=== PATIENT | male | born 1975 | race Caucasian/White ===

== ENCOUNTER 2019-06-16 14:53 | Inpatient (IN) | payer OTHER ==
[2019-06-16 19:24] VITALS: BMI 45.0
--- NOTE | 2019-06-16 21:30 | HP ---
COWS - Scale Resting Pulse: 1= AK 81-100 Sweatin=Flushed/Facial Moisture Restless Observation: 0= Sits Still Pupil Size: 1= Pupils >than Normal Bone or Joint Aches: 4=Acute Joint/Muscle Pain Runny Nose/ Eye Tearin= Nasal Congestion GI Upset > 30mins: 2= Nausea/Diarrhea (diarrhea x 3) Tremor Observation: 2= Slight Tremor Visible Yawning Observation: 1= 1-2x During Session Anxiety or Irritability: 4=Extreme Anxiety Goose Flesh Skin: 0=Smooth Skin COWS Score: 18 CIWA Score Nausea/Vomitin Muscle Tremors: 3 Anxiety: 3 Agitation: 3 Paroxysmal Sweats: 2 Orientation: 2-Disoriented Date<2 days Tacttile Disturbances: 0-None Auditory Disturbances: 0-None Visual Disturbances: 0-None Headache: 4-Moderately Severe CIWA-Ar Total Score: 19 - Admission Criteria OASAS Guidelines: Admission for Medically Managed Detox: Requires at least one of the followin. CIWA greater than 12 2. Seizures within the past 24 hours 3. Delirium tremens within the past 24 hours 4. Hallucinations within the past 24 hours 5. Acute intervention needed for co occurring medical disorder 6. Acute intervention needed for co occurring psychiatric disorder 7. Severe withdrawal that cannot be handled at a lower level of care (continued vomiting, continued diarrhea, abnormal vital signs) requiring intravenous medication and/or fluids 8. Admission ROS [facility] Chief Complaint: Heroin and alcohol withdrawal symptoms Allergies/Adverse Reactions: Allergies Allergy/AdvReac Type Severity Reaction Status Date / Time No Known Allergies Allergy Verified 06/16/19 19:15 History of Present Illness: 43 years old male with 14 years of heroin dependence, 7 years of Xanax dependence and 26 years of alcohol dependence is seeking admission to detox. - Ebola screening Have you traveled outside of the country in the last 21 days: No (N) Have you had contact with anyone from an Ebola affected area: No Do you have a fever: No Patient History - Substances abused Alprazolam (Xanax) Substance route: Oral Frequency: Daily Amount used: 3 pills of 2 mg Age of first use: 39 Date of last use: 06/16/19 Crack Substance route: Smoking Frequency: Daily Amount used: 40 dollars worth Age of first use: 39 Date of last use: 06/16/19 Alcohol Substance route: Oral Frequency: Daily Amount used: 30 dollars worth of beer Age of first use: 13 Date of last use: 06/16/19 Heroin Substance route: Inhalation Frequency: Daily Amount used: 10 bags Age of first use: 31 Date of last use: 06/16/19 Admission Physical Exam BHS - Vital Signs Vital Signs: Vital Signs - 24 hr 06/16/19 19:14 Temperature 97 F L Pulse Rate 90 Respiratory 18 Rate Blood Pressure 145/84 Breathalyzer - Breathalyzer Breathalyzer: 0 Urine Drug Screen - Test Device Lot number: [id number] Expiration date: 03/11/21 - Control Is test valid?: Yes - Results Drug screen NEGATIVE: No Urine drug screen results: ALEX-Cocaine, MET-Methamphetamine, FEN-Fentanyl, MOP- Opiates, OXY-Oxycodone, MTD-Methadone, BZO-Benzodiazepines
--- NOTE | 2019-06-16 21:46 | HP ---
CIWA Score Nausea/Vomitin-No Nausea/No Vomiting Muscle Tremors: 2 Anxiety: 3 Agitation: 3 Paroxysmal Sweats: 1-Minimal Palms Moist Orientation: 0-Oriented Tacttile Disturbances: 1-Very Mild Itch/Numbness Auditory Disturbances: 0-None Visual Disturbances: 1-Very Mild Sensitivity Headache: 3-Moderate CIWA-Ar Total Score: 14 - Admission Criteria OASAS Guidelines: Admission for Medically Managed Detox: Requires at least one of the followin. CIWA greater than 12 2. Seizures within the past 24 hours 3. Delirium tremens within the past 24 hours 4. Hallucinations within the past 24 hours 5. Acute intervention needed for co occurring medical disorder 6. Acute intervention needed for co occurring psychiatric disorder 7. Severe withdrawal that cannot be handled at a lower level of care (continued vomiting, continued diarrhea, abnormal vital signs) requiring intravenous medication and/or fluids 8. Patient presents the following: CIWA greater than 12 Admission Criteria Met: Admission criteria met Admission ROS BHS - HPI Chief Complaint: alcohol and xanax withdrawal sx Allergies/Adverse Reactions: Allergies Allergy/AdvReac Type Severity Reaction Status Date / Time No Known Allergies Allergy Verified 06/16/19 19:15 History of Present Illness: Patient is a 43 yo, male, homeless with hx of xanax and alcohol dependence is here seeking inpatient detox. Patient linked [facility] on methadone 130 mg last medicated today, dose pending verification. PMHX; brain aneurysm (2000), PVD, HTN, Asthma, obesity, sleep apnea. Psych: anxiety, depression. Denies hx of seizures,blackouts or overdose. Denies SI/HI Exam Limitations: No Limitations - Ebola screening Have you traveled outside of the country in the last 21 days: No (N) Have you had contact with anyone from an Ebola affected area: No Do you have a fever: No - Review of Systems Constitutional: Chills, Changes in sleep (no sleep x 2 days), Other (weight gain ) EENT: reports: No Symptoms Reported Respiratory: reports: See HPI Cardiac: reports: No Symptoms Reported GI: reports: Poor Fluid Intake, Indigestion : reports: No Symptoms Reported Musculoskeletal: reports: Back Pain, Joint Pain Integumentary: reports: Other (hyper pigementation b/l extremities) Neuro: reports: Headache Endocrine: reports: Increased Thirst Hematology: reports: No Symptoms Reported Psychiatric: reports: Orientated x3, Agitated, Anxious Other Systems: Reviewed and Negative Patient History - Patient Medical History Hx Anemia: No Hx Asthma: Yes Hx Chronic Obstructive Pulmonary Disease (COPD): No Hx Cancer: No Hx Cardiac Disorders: No Hx Congestive Heart Failure: No Hx Hypertension: Yes (losartan ) Hx Hypercholesterolemia: Yes Hx Pacemaker: No HX Cerebrovascular Accident: No Hx Seizures: No Hx Dementia: No Hx Diabetes: No Hx Gastrointestinal Disorders: No Hx Liver Disease: Yes (Hep C) Hx Genitourinary Disorders: No Hx Sexually Transmitted Disorders: No Hx Renal Disease (ESRD): No Hx Thyroid Disease: No Hx Human Immunodeficiency Virus (HIV): No Hx Hepatitis C: Yes Hx Depression: Yes Hx Suicide Attempt: No Hx Bipolar Disorder: No Hx Schizophrenia: No Other Medical History: Sleep apnea, Brain aneurysm - Patient Surgical History Past Surgical History: Yes Other Surgical History: brain aneurysm Anesthesia Reaction: No - PPD History Previous Implant?: No (quantioferon ordered ) Documented Results: Negative w/o proof PPD to be Administered?: No - Smoking Cessation Smoking history: Current every day smoker Have you smoked in the past 12 months: Yes Aproximately how many cigarettes per day: 4 Hx Chewing Tobacco Use: No Initiated information on smoking cessation: Yes 'Breaking Loose' booklet given: 06/16/19 - Substance & Tx. History Hx Alcohol Use: Yes Hx Substance Use: Yes Substance Use Type: Alcohol, Tranquilizers Hx Substance Use Treatment: Yes (Detox 2015 [facility] ) - Substances abused Alprazolam (Xanax) Substance route: Oral Frequency: Daily Amount used: 3 pills of 2 mg Age of first use: 39 Date of last use: 06/16/19 Crack Substance route: Smoking Frequency: Daily Amount used: 40 dollars worth Age of first use: 39 Date of last use: 06/16/19 Alcohol Substance route: Oral Frequency: Daily Amount used: 10 beer x 12 oz Age of first use: 13 Date of last use: 06/16/19 Heroin Substance route: Inhalation Frequency: Daily Amount used: 10 bags Age of first use: 31 Date of last use: 06/16/19 Family Disease History - Family Disease History Family History: Denies Admission Physical Exam BHS - Vital Signs Vital Signs: Vital Signs - 24 hr 06/16/19 19:14 Temperature 97 F L Pulse Rate 90 Respiratory 18 Rate Blood Pressure 145/84 - Physical General Appearance: Yes: Disheveled, Obese, Irritable, Anxious HEENTM: Yes: EOMI, Hearing grossly Normal, Normal ENT Inspection, Normocephalic , Normal Voice, Pharynx Normal, Tm's normal Respiratory: Yes: Chest Non-Tender, Lungs Clear, Normal Breath Sounds, No Respiratory Distress, No Accessory Muscle Use, Wheezing Neck: Yes: Within Normal Limits Breast: Yes: Breast Exam Deferred Cardiology: Yes: Regular Rhythm, Regular Rate Abdominal: Yes: Normal Bowel Sounds, Non Tender, Soft, Protuberent Genitourinary: Yes: Within Normal Limits Back: Yes: Normal Inspection Musculoskeletal: Yes: full range of Motion, Gait Steady, Pelvis Stable, Back pain Extremities: Yes: Within Normal Limits, Normal Capillary Refill, Normal Inspection, Normal Range of Motion, Non-Tender Neurological: Yes: prover II-XII NML intact, Fully Oriented, Alert, Motor Strength 5/5, Depressed Affect Integumentary: Yes: Normal Color, Warm, Diaphoresis, Other (+b/l non-pitting edema, +b/l varicose veins, hyperpigmentation b/l lower etxremities) Lymphatic: Yes: Within Normal Limits - Diagnostic (1) Alcohol dependence with uncomplicated withdrawal Current Visit: Yes Status: Acute (2) Sedative, hypnotic or anxiolytic dependence with withdrawal, uncomplicated Current Visit: Yes Status: Acute (3) Essential (primary) hypertension Current Visit: Yes Status: Chronic (4) Asthma Current Visit: Yes Status: Chronic Qualifiers: Asthma severity: moderate Asthma persistence: unspecified Asthma complication type: uncomplicated Qualified Code(s): J45.909 - Unspecified asthma, uncomplicated (5) Obesity, Class III, BMI 40-49.9 (morbid obesity) Current Visit: Yes Status: Chronic (6) Opioid dependence on agonist therapy Current Visit: Yes Status: Acute Comment: MMTP on 130 mg dose pending verification Cleared for Admission S - Detox or Rehab [facility] Level of Care: Medically Managed Detox Regimen/Protocol: Librium Breathalyzer - Breathalyzer Breathalyzer: 0 Urine Drug Screen - Test Device Lot number: [id number] Expiration date: 03/11/21 - Control Is test valid?: Yes - Results Drug screen NEGATIVE: No Urine drug screen results: ALEX-Cocaine, MET-Methamphetamine, FEN-Fentanyl, MOP- Opiates, OXY-Oxycodone, MTD-Methadone, BZO-Benzodiazepines Inpatient Rehab Admission - Rehab Decision to Admit Inpatient rehab admission?: No
[2019-06-16] MEDS ORDERED: ALBUTEROL SO4 0.083% IH SOL 2.5 MG/3 ML VIAL.NEB. NEB PRN (21:50)
[2019-06-16] MEDS ORDERED: hydrOXYzine PAMOATE 25 MG CAPSULE (FP) PO PRN (21:51)
[2019-06-16] MEDS ORDERED: BISMUTH SUBSALICYLATE 524 MG/30 ML UD PO PRN (21:51)
[2019-06-16] MEDS ORDERED: ACETAMINOPHEN 325 MG TABLET (FP) PO PRN ×2 (21:51)
[2019-06-16] MEDS ORDERED: MAGNESIUM HYDROX 2400MG/30ML ORAL SUSPENSION 30 ML CUP PO PRN (21:51)
[2019-06-16] MEDS ORDERED: METHOCARBAMOL 500 MG TABLET PO PRN (21:51)
[2019-06-16] MEDS ORDERED: MAGNESIUM CITRATE 300 ML BOTTLE PO PRN (21:51)
[2019-06-16] MEDS ORDERED: MAG HYDROX/AL HYDROX/SIMETH 30 ML UNIT-DOSE CUP PO PRN (21:51)
[2019-06-16] MEDS ORDERED: NICOTINE POLACRILEX 2 MG GUM BUC PRN (21:51)
[2019-06-16] MEDS ORDERED: chlordiazePOXIDE HCL 10 MG CAPSULE PO PRN (21:51)
[2019-06-16] MEDS: GABAPENTIN 300 MG CAPSULE (FP) PO SCH (23:28)
[2019-06-16] MEDS: chlordiazePOXIDE HCL 25 MG CAPSULE PO SCH (23:28)
[2019-06-16] MEDS: THIAMINE HCL 100 MG TABLET (FP) PO SCH (23:28)
[2019-06-17] MEDS: hydrALAZINE HCL 25 MG TABLET (FP) PO SCH ×2 (00:09→22:11)
[2019-06-17] MEDS: GABAPENTIN 300 MG CAPSULE (FP) PO SCH ×3 (06:25→22:11)
[2019-06-17] MEDS: chlordiazePOXIDE HCL 25 MG CAPSULE PO SCH ×3 (06:25→21:11)
[2019-06-17] MEDS ORDERED: METHADONE HCL 10 MG TABLET PO ONE (09:01)
[2019-06-17] MEDS ORDERED: METHADONE 120 MG, METHADONE 10 MG PO ONE (09:20)
[2019-06-17] MEDS ORDERED: METHADONE HCL 40 MG DISPERSABLE TABLET ONE (09:24)
[2019-06-17] MEDS ORDERED: METHADONE HCL 10 MG TABLET ONE (09:24)
[2019-06-17] MEDS: LOSARTAN POTASSIUM 50 MG TABLET (FP) PO SCH (09:51)
[2019-06-17] MEDS: FUROSEMIDE 40 MG TABLET (FP) PO SCH (09:51)
[2019-06-17] MEDS: NICOTINE 14 MG/24 HOURS TOPICAL PATCH TD SCH (09:51)
[2019-06-17] MEDS: PRENATAL VITAMINS W/ FOLIC ACID TABLET (FP) PO SCH (09:51)
--- NOTE | 2019-06-17 11:39 | PN ---
S CIWA - CIWA Score Nausea/Vomitin Muscle Tremors: 2 Anxiety: 2 Agitation: 2 Paroxysmal Sweats: No Perspiration Orientation: 0-Oriented Tacttile Disturbances: 1-Very Mild Itch/Numbness Auditory Disturbances: 0-None Visual Disturbances: 0-None Headache: 2-Mild CIWA-Ar Total Score: 11 S Progress Note (SOAP) Subjective: alet,irritable,anxious,interrupted sleep,tremor Objective: 06/17/19 11:37 Vital Signs Temperature 97.3 F L 06/17/19 09:27 Pulse Rate 82 06/17/19 09:27 Respiratory Rate 18 06/17/19 09:27 Blood Pressure 121/77 06/17/19 09:27 O2 Sat by Pulse Oximetry (%) 06/17/19 11:38 labs pending Assessment: 06/17/19 11:38 withdrawal symptom Plan: continue detox librium regimen
[2019-06-17 12:04] LABS: HEMATOCRIT 42.2 % (35.4-49); HEMOGLOBIN 13.3 GM/dL (11.7-16.9); MCH 26.7 pg (25.7-33.7); MCHC 31.6 g/dl (32.0-35.9); MEAN CELL VOLUME 84.4 fl (80-96); MEAN PLT VOLUME 9.1 fl (7.5-11.1); PLATELET COUNT 276 K/MM3 (134-434); RDW 16.9 % (11.9-15.9); WHITE BLOOD COUNT 11.7 K/mm3 (4.0-10.0)
[2019-06-17 12:18] LABS: ALBUMIN 3.4 g/dl (3.4-5.0); BILIRUBIN,TOTAL 0.3 mg/dL (0.2-1); BLOOD UREA NITROGEN 14.5 mg/dL (7-18); CALCIUM 8.7 mg/dL (8.5-10.1); CREATININE 0.8 mg/dL (0.55-1.3); POTASSIUM 3.8 mmol/L (3.5-5.1); TOT PROT 7.3 g/dl (6.4-8.2)
--- NOTE | 2019-06-17 12:18 | EKG ---
Test Reason : Blood Pressure : / mmHG Vent. Rate : 073 BPM Atrial Rate : 073 BPM P-R Int : 156 ms QRS Dur : 110 ms QT Int : 430 ms P-R-T Axes : 045 -26 018 degrees QTc Int : 473 ms NORMAL SINUS RHYTHM MINIMAL VOLTAGE CRITERIA FOR LVH, MAY BE NORMAL VARIANT CANNOT RULE OUT INFERIOR INFARCT , AGE UNDETERMINED ABNORMAL ECG NO PREVIOUS ECGS AVAILABLE Confirmed by KHARI HUGHES MD ([id number]) on 06/17/2019 12:17:29 PM Referred By: CAROL TOBAR Confirmed By:KHARI HUGHES MD
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
[2019-06-17] MEDS ORDERED: SUVOREXANT 10 MG TABLET PO PRN (22:00)
[2019-06-17] MEDS: THIAMINE HCL 100 MG TABLET (FP) PO SCH (22:10)
[2019-06-17] MEDS: MELATONIN 5 MG TABLETS PO PRN (22:11)
[2019-06-18] MEDS: ALBUTEROL SO4 8 GM HFA INHALER IH PRN (03:59)
[2019-06-18] MEDS ORDERED: METHADONE HCL 10 MG TABLET ONE (05:37)
[2019-06-18] MEDS ORDERED: METHADONE HCL 40 MG DISPERSABLE TABLET ONE (05:37)
[2019-06-18] MEDS: chlordiazePOXIDE 5 MG CAPSULE PO SCH ×3 (05:55→21:55)
[2019-06-18] MEDS: METHADONE 120 MG, METHADONE 10 MG PO SCH (05:56)
[2019-06-18] MEDS ORDERED: METHADONE HCL 40 MG DISPERSABLE TABLET PO SCH (06:00)
[2019-06-18] MEDS: hydrALAZINE HCL 25 MG TABLET (FP) PO SCH ×4 (08:44→22:23)
[2019-06-18] MEDS: GABAPENTIN 300 MG CAPSULE (FP) PO SCH ×3 (08:45→22:24)
[2019-06-18] MEDS: FUROSEMIDE 40 MG TABLET (FP) PO SCH (10:54)
[2019-06-18] MEDS: PRENATAL VITAMINS W/ FOLIC ACID TABLET (FP) PO SCH (10:54)
[2019-06-18] MEDS: NICOTINE 14 MG/24 HOURS TOPICAL PATCH TD SCH (10:54)
[2019-06-18] MEDS: LOSARTAN POTASSIUM 50 MG TABLET (FP) PO SCH (10:54)
--- NOTE | 2019-06-18 11:27 | PN ---
S CIWA - CIWA Score Nausea/Vomitin-No Nausea/No Vomiting Muscle Tremors: None Anxiety: 3 Agitation: 0-Normal Activity Paroxysmal Sweats: 3 Orientation: 0-Oriented Tacttile Disturbances: 0-None Auditory Disturbances: 0-None Visual Disturbances: 0-None Headache: 2-Mild CIWA-Ar Total Score: 8 BHS Progress Note (SOAP) Subjective: c/o anxiety, headache, and sweats. Objective: 06/18/19 11:26 Vital Signs 06/18/19 06/18/19 06/18/19 03:30 06:00 09:13 Temperature 97.7 F 97.6 F Pulse Rate 71 82 Respiratory 20 18 18 Rate Blood Pressure 126/74 123/89 Lab Results WBC 11.7 K/mm3 (4.0-10.0) H 06/17/19 08:30 RBC 5.00 M/mm3 (4.00-5.60) 06/17/19 08:30 Hgb 13.3 GM/dL (11.7-16.9) 06/17/19 08:30 Hct 42.2 % (35.4-49) 06/17/19 08:30 MCV 84.4 fl (80-96) 06/17/19 08:30 MCHC 31.6 g/dl (32.0-35.9) L 06/17/19 08:30 RDW 16.9 % (11.9-15.9) H 06/17/19 08:30 Plt Count 276 K/MM3 (134-434) 06/17/19 08:30 Sodium 143 mmol/L (136-145) 06/17/19 08:30 Potassium 3.8 mmol/L (3.5-5.1) 06/17/19 08:30 Chloride 100 mmol/L (98-107) 06/17/19 08:30 Carbon Dioxide 32 mmol/L (21-32) 06/17/19 08:30 Anion Gap 10 MMOL/L (8-16) 06/17/19 08:30 BUN 14.5 mg/dL (7-18) 06/17/19 08:30 Creatinine 0.8 mg/dL (0.55-1.3) 06/17/19 08:30 Random Glucose 124 mg/dL (74-106) H 06/17/19 08:30 Calcium 8.7 mg/dL (8.5-10.1) 06/17/19 08:30 Labs noted. Assessment: 06/18/19 11:26 AOX3, in no acute respiratory distress. Full ROM, ambulating in the unit. Withdrawal symptoms. Plan: continue detox.
[2019-06-18] MEDS: MENTHOL/PHENOL 1 EACH UD MM PRN ×2 (16:27→22:26)
[2019-06-18] MEDS: IBUPROFEN 400 MG TABLET (FP) PO PRN (17:13)
[2019-06-18] MEDS: THIAMINE HCL 100 MG TABLET (FP) PO SCH (22:23)
[2019-06-18] MEDS: MELATONIN 5 MG TABLETS PO PRN (22:24)
[2019-06-19] MEDS ORDERED: chlordiazePOXIDE HCL 10 MG CAPSULE PO PRN
[2019-06-19] MEDS ORDERED: METHADONE HCL 40 MG DISPERSABLE TABLET ONE (03:48)
[2019-06-19] MEDS ORDERED: METHADONE HCL 10 MG TABLET ONE (03:48)
[2019-06-19] MEDS: GABAPENTIN 300 MG CAPSULE (FP) PO SCH ×3 (05:48→22:19)
[2019-06-19] MEDS: hydrALAZINE HCL 25 MG TABLET (FP) PO SCH ×3 (05:48→22:21)
[2019-06-19] MEDS: chlordiazePOXIDE HCL 10 MG CAPSULE PO SCH ×3 (05:48→22:19)
[2019-06-19] MEDS: METHADONE 120 MG, METHADONE 10 MG PO SCH (05:49)
[2019-06-19] MEDS: ALBUTEROL SO4 8 GM HFA INHALER IH PRN (07:40)
[2019-06-19] MEDS: MENTHOL/PHENOL 1 EACH UD MM PRN (07:40)
[2019-06-19] MEDS: FUROSEMIDE 40 MG TABLET (FP) PO SCH (10:30)
[2019-06-19] MEDS: NICOTINE 14 MG/24 HOURS TOPICAL PATCH TD SCH (10:30)
[2019-06-19] MEDS: LOSARTAN POTASSIUM 50 MG TABLET (FP) PO SCH (10:30)
[2019-06-19] MEDS: PRENATAL VITAMINS W/ FOLIC ACID TABLET (FP) PO SCH (10:30)
[2019-06-19] MEDS ORDERED: AZITHROMYCIN 250 MG TABLET PO ONE (11:00)
[2019-06-19] MEDS ORDERED: ALBUTEROL SO4 0.083% IH SOL 2.5 MG/3 ML VIAL.NEB. NEB ONE (11:01)
--- NOTE | 2019-06-19 16:12 | PN ---
S CIWA - CIWA Score Nausea/Vomitin-No Nausea/No Vomiting Muscle Tremors: None Anxiety: 3 Agitation: 3 Paroxysmal Sweats: 2 Orientation: 0-Oriented Tacttile Disturbances: 0-None Auditory Disturbances: 0-None Visual Disturbances: 0-None Headache: 0-None Present CIWA-Ar Total Score: 8 BHS Progress Note (SOAP) Subjective: Anxious, sweating, interrupted sleep. Patient c/o sore throat x 2 days, not relieve with throat lozenges, hurts when swallow/hard to swallow. Patient has asthma, stated he was wheezing earlier but took albuterol mdi and feels a little better, wants a dose of albuterol nebulizer Objective: 06/19/19 16:06 Last Vital Signs Temp Pulse Resp BP Pulse Ox 97.2 F L 79 20 134/75 06/19/19 13:09 06/19/19 13:09 06/19/19 13:09 06/19/19 13:09 ROS: denies sob, chest pain, cough, abdominal pain, n/v/c/d PE: Mouth/throat: moist mucous membranes, moderate pharyngeal erythema without exudates Neck: supple, FROM, no lymphadenopathy Lungs: ctab/l, no added breath sounds CV: rrr, s1s2+, apical rate 68 bpm, no m/g/r Skin: warm to touch, turgor good Laboratory Tests 06/17/19 06/17/19 06/17/19 06:41 08:30 08:30 WBC 11.7 H RBC 5.00 Hgb 13.3 Hct 42.2 MCV 84.4 MCH 26.7 MCHC 31.6 L RDW 16.9 H Plt Count 276 MPV 9.1 Sodium 143 Potassium 3.8 Chloride 100 Carbon Dioxide 32 Anion Gap 10 BUN 14.5 Creatinine 0.8 Est GFR (CKD-EPI)AfAm 127.70 Est GFR (CKD-EPI)NonAf 110.18 POC Glucometer 168 Random Glucose 124 H Calcium 8.7 Total Bilirubin 0.3 AST 10 L ALT 20 Alkaline Phosphatase 101 Total Protein 7.3 Albumin 3.4 RPR Titer 06/17/19 08:30 WBC RBC Hgb Hct MCV MCH MCHC RDW Plt Count MPV Sodium Potassium Chloride Carbon Dioxide Anion Gap BUN Creatinine Est GFR (CKD-EPI)AfAm Est GFR (CKD-EPI)NonAf POC Glucometer Random Glucose Calcium Total Bilirubin AST ALT Alkaline Phosphatase Total Protein Albumin RPR Titer Nonreactive Labs reviewed: wbc 11.7, serum glucose 124, FS 168 Assessment: 06/19/19 16:07 Withdrawal sxs Noted with Acute pharyngitis, leukocytosis and hyperglycemia Plan: Continue detox Encouraged PO water intake Hold discharge until Thursday as patient is sick Acute pharyngitis: encouraged PO water intake, continue lozenges, start Z [place] Leukocytosis: most likely secondary to pharyngitis, repeat CBC Hyperglycemia: patient denies DM; repeat fasting glucose, send A1c, start treatment if result shows DM
[2019-06-19] MEDS: MELATONIN 5 MG TABLETS PO PRN (22:19)
[2019-06-19] MEDS: THIAMINE HCL 100 MG TABLET (FP) PO SCH (22:19)
[2019-06-20] MEDS ORDERED: METHADONE HCL 10 MG TABLET ONE (04:26)
[2019-06-20] MEDS ORDERED: METHADONE HCL 40 MG DISPERSABLE TABLET ONE (04:26)
[2019-06-20] MEDS ORDERED: chlordiazePOXIDE HCL 10 MG CAPSULE PO ONE (05:00)
[2019-06-20] MEDS: hydrALAZINE HCL 25 MG TABLET (FP) PO SCH ×3 (05:49→22:01)
[2019-06-20] MEDS: METHADONE 120 MG, METHADONE 10 MG PO SCH (05:49)
[2019-06-20] MEDS: GABAPENTIN 300 MG CAPSULE (FP) PO SCH ×3 (06:14→22:01)
--- NOTE | 2019-06-20 09:14 | DS ---
[facility] Detox Discharge Summary Admission Date: 06/16/19 Discharge Date: 06/20/19 - History Present History: Alcohol Dependence, Cocaine Dependence, Sedative Dependence - Physical Exam Results Vital Signs: Vital Signs Temperature 97.2 F L 06/20/19 07:00 Pulse Rate 73 06/20/19 07:00 Respiratory Rate 20 06/20/19 07:00 Blood Pressure 143/77 06/20/19 07:00 O2 Sat by Pulse Oximetry (%) Pertinent Admission Physical Exam Findings: pt arrived in withdrawals Laboratory Tests 06/17/19 06/17/19 06/17/19 06:41 08:30 08:30 WBC 11.7 H RBC 5.00 Hgb 13.3 Hct 42.2 MCV 84.4 MCH 26.7 MCHC 31.6 L RDW 16.9 H Plt Count 276 MPV 9.1 Sodium 143 Potassium 3.8 Chloride 100 Carbon Dioxide 32 Anion Gap 10 BUN 14.5 Creatinine 0.8 Est GFR (CKD-EPI)AfAm 127.70 Est GFR (CKD-EPI)NonAf 110.18 POC Glucometer 168 Random Glucose 124 H Calcium 8.7 Total Bilirubin 0.3 AST 10 L ALT 20 Alkaline Phosphatase 101 Total Protein 7.3 Albumin 3.4 RPR Titer 06/17/19 08:30 WBC RBC Hgb Hct MCV MCH MCHC RDW Plt Count MPV Sodium Potassium Chloride Carbon Dioxide Anion Gap BUN Creatinine Est GFR (CKD-EPI)AfAm Est GFR (CKD-EPI)NonAf POC Glucometer Random Glucose Calcium Total Bilirubin AST ALT Alkaline Phosphatase Total Protein Albumin RPR Titer Nonreactive today pt is aaox3 ambulating no acute distress no s/s of withdrawals - Treatment Hospital Course: Detox Protocol Followed, Detoxed Safely, Responded well, Discharged Condition Good, Rehab Referral Accepted Patient has Accepted a Rehab Referral to: [facility] - Medication Discharge Medications: Ambulatory Orders Furosemide 40 mg PO DAILY 06/16/19 Gabapentin [Neurontin] 300 mg PO TID 06/16/19 Hydralazine HCl 25 mg PO TID 06/16/19 Losartan Potassium 100 mg PO DAILY 06/16/19 - Diagnosis (1) Alcohol dependence with uncomplicated withdrawal Current Visit: Yes Status: Chronic (2) Cocaine dependence Current Visit: Yes Status: Chronic Qualifiers: Substance use status: uncomplicated Qualified Code(s): F14.20 - Cocaine dependence, uncomplicated (3) Sedative, hypnotic or anxiolytic dependence with withdrawal, uncomplicated Current Visit: Yes Status: Chronic (4) Substance induced mood disorder Current Visit: Yes Status: Acute (5) Substance-induced sleep disorder Current Visit: Yes Status: Acute (6) Asthma Current Visit: Yes Status: Chronic Qualifiers: Asthma severity: moderate Asthma persistence: unspecified Asthma complication type: uncomplicated Qualified Code(s): J45.909 - Unspecified asthma, uncomplicated (7) Dyslipidemia Current Visit: Yes Status: Chronic (8) Essential (primary) hypertension Current Visit: Yes Status: Chronic (9) Nicotine dependence Current Visit: Yes Status: Chronic Qualifiers: Nicotine product type: cigarettes Substance use status: uncomplicated Qualified Code(s): F17.210 - Nicotine dependence, cigarettes, uncomplicated (10) Obesity, Class III, BMI 40-49.9 (morbid obesity) Current Visit: Yes Status: Chronic (11) PTSD (post-traumatic stress disorder) Current Visit: Yes Status: Chronic (12) PVD (peripheral vascular disease) Current Visit: Yes Status: Chronic (13) Brain aneurysm Current Visit: No Status: Resolved - AMA Did Patient Leave Against Medical Advice: No
[2019-06-20] MEDS: FUROSEMIDE 40 MG TABLET (FP) PO SCH (09:39)
[2019-06-20] MEDS: AZITHROMYCIN 250 MG TABLET PO SCH (09:40)
[2019-06-20] MEDS: IBUPROFEN 400 MG TABLET (FP) PO PRN (09:44)
[2019-06-20] MEDS: MENTHOL/PHENOL 1 EACH UD MM PRN (09:46)
[2019-06-20] MEDS: LOSARTAN POTASSIUM 50 MG TABLET (FP) PO SCH (10:04)
[2019-06-20] MEDS: NICOTINE 14 MG/24 HOURS TOPICAL PATCH TD SCH (10:47)
[2019-06-20] MEDS: PRENATAL VITAMINS W/ FOLIC ACID TABLET (FP) PO SCH (10:49)
[2019-06-20 12:46] LABS: BASO % 0.4 % (0-2.0); EOS % 3.2 % (0-4.5); HEMATOCRIT 45.9 % (35.4-49); HEMOGLOBIN 14.5 GM/dL (11.7-16.9); LYMPH % 22.6 % (8-40); MCH 26.7 pg (25.7-33.7); MCHC 31.6 g/dl (32.0-35.9); MEAN CELL VOLUME 84.4 fl (80-96); MONO % 5.2 % (3.8-10.2); NEUT % 68.6 % (42.8-82.8); PLATELET COUNT 312 K/MM3 (134-434); RBC 5.44 M/mm3 (4.00-5.60); RDW 16.7 % (11.9-15.9); WHITE BLOOD COUNT 10.5 K/mm3 (4.0-10.0)
[2019-06-20 12:57] LABS: URINE APPEARANCE CLEAR; URINE BILIRUBIN NEGATIVE (NEGATIVE); URINE COLOR YELLOW; URINE GLUCOSE (UA) NEGATIVE (NEGATIVE); URINE KETONE NEGATIVE (NEGATIVE); URINE LEUK ESTERASE NEGATIVE (NEGATIVE); URINE NITRITE NEGATIVE (NEGATIVE); URINE PROTEIN NEGATIVE (NEGATIVE); URINE UROBILINOGEN 0.2 mg/dL (0.2-1.0)
[2019-06-20 13:32] LABS: ANISOCYTOSIS 0; MACROCYTOSIS 0; PLATELET ESTIMATE NORMAL
[2019-06-20] MEDS ORDERED: SUVOREXANT 10 MG TABLET PO PRN (22:00)
[2019-06-20] MEDS: THIAMINE HCL 100 MG TABLET (FP) PO SCH (22:01)
[2019-06-21] MEDS ORDERED: METHADONE HCL 10 MG TABLET ONE (04:40)
[2019-06-21] MEDS ORDERED: METHADONE HCL 40 MG DISPERSABLE TABLET ONE (04:41)
[2019-06-21] MEDS: METHADONE 120 MG, METHADONE 10 MG PO SCH (05:06)
[2019-06-21] MEDS: GABAPENTIN 300 MG CAPSULE (FP) PO SCH (05:07)
[2019-06-21] MEDS: hydrALAZINE HCL 25 MG TABLET (FP) PO SCH (05:07)
--- NOTE | 2019-06-21 09:04 | DS ---
[facility] Detox Discharge Summary Admission Date: 06/16/19 Discharge Date: 06/21/19 - History Present History: Alcohol Dependence, Cocaine Dependence, Sedative Dependence - Physical Exam Results Vital Signs: Vital Signs Temperature 96.6 F L 06/21/19 06:53 Pulse Rate 88 06/21/19 06:53 Respiratory Rate 20 06/21/19 06:53 Blood Pressure 131/75 06/21/19 06:53 O2 Sat by Pulse Oximetry (%) Pertinent Admission Physical Exam Findings: pt arrived in withdrawals Laboratory Tests 06/17/19 06/17/19 06/17/19 06:41 08:30 08:30 WBC 11.7 H RBC 5.00 Hgb 13.3 Hct 42.2 MCV 84.4 MCH 26.7 MCHC 31.6 L RDW 16.9 H Plt Count 276 MPV 9.1 Absolute Neuts (auto) Neutrophils % Neutrophils % (Manual) Band Neutrophils % Lymphocytes % Lymphocytes % (Manual) Monocytes % Monocytes % (Manual) Eosinophils % Eosinophils % (Manual) Basophils % Basophils % (Manual) Myelocytes % (Man) Promyelocytes % (Man) Blast Cells % (Manual) Nucleated RBC % Metamyelocytes Hypochromia Platelet Estimate Polychromasia Poikilocytosis Anisocytosis Microcytosis Macrocytosis Sodium 143 Potassium 3.8 Chloride 100 Carbon Dioxide 32 Anion Gap 10 BUN 14.5 Creatinine 0.8 Est GFR (CKD-EPI)AfAm 127.70 Est GFR (CKD-EPI)NonAf 110.18 POC Glucometer 168 Random Glucose 124 H Fasting Glucose Hemoglobin A1c % Calcium 8.7 Total Bilirubin 0.3 AST 10 L ALT 20 Alkaline Phosphatase 101 Total Protein 7.3 Albumin 3.4 Urine Color Urine Appearance Urine pH Ur Specific [place] Urine Protein Urine Glucose (UA) Urine Ketones Urine Blood Urine Nitrite Urine Bilirubin Urine Urobilinogen Ur Leukocyte Esterase RPR Titer 06/17/19 06/20/19 06/20/19 08:30 09:00 09:00 WBC 10.5 H RBC 5.44 Hgb 14.5 Hct 45.9 MCV 84.4 MCH 26.7 MCHC 31.6 L RDW 16.7 H Plt Count 312 MPV 9.0 Absolute Neuts (auto) 7.2 Neutrophils % 68.6 Neutrophils % (Manual) 68.4 Band Neutrophils % 2.0 Lymphocytes % 22.6 Lymphocytes % (Manual) 20.4 Monocytes % 5.2 Monocytes % (Manual) 5 Eosinophils % 3.2 Eosinophils % (Manual) 1.0 Basophils % 0.4 Basophils % (Manual) 0.0 Myelocytes % (Man) 0 Promyelocytes % (Man) 0 Blast Cells % (Manual) 0 Nucleated RBC % 0 Metamyelocytes 0 Hypochromia 0 Platelet Estimate Normal Polychromasia 0 Poikilocytosis 0 Anisocytosis 0 Microcytosis 0 Macrocytosis 0 Sodium Potassium Chloride Carbon Dioxide Anion Gap BUN Creatinine Est GFR (CKD-EPI)AfAm Est GFR (CKD-EPI)NonAf POC Glucometer Random Glucose Fasting Glucose 155 H Hemoglobin A1c % Calcium Total Bilirubin AST ALT Alkaline Phosphatase Total Protein Albumin Urine Color Urine Appearance Urine pH Ur Specific [place] Urine Protein Urine Glucose (UA) Urine Ketones Urine Blood Urine Nitrite Urine Bilirubin Urine Urobilinogen Ur Leukocyte Esterase RPR Titer Nonreactive 06/20/19 06/20/19 06/20/19 09:00 09:00 16:32 WBC RBC Hgb Hct MCV MCH MCHC RDW Plt Count MPV Absolute Neuts (auto) Neutrophils % Neutrophils % (Manual) Band Neutrophils % Lymphocytes % Lymphocytes % (Manual) Monocytes % Monocytes % (Manual) Eosinophils % Eosinophils % (Manual) Basophils % Basophils % (Manual) Myelocytes % (Man) Promyelocytes % (Man) Blast Cells % (Manual) Nucleated RBC % Metamyelocytes Hypochromia Platelet Estimate Polychromasia Poikilocytosis Anisocytosis Microcytosis Macrocytosis Sodium Potassium Chloride Carbon Dioxide Anion Gap BUN Creatinine Est GFR (CKD-EPI)AfAm Est GFR (CKD-EPI)NonAf POC Glucometer 121 Random Glucose Fasting Glucose Hemoglobin A1c % 7.3 H Calcium Total Bilirubin AST ALT Alkaline Phosphatase Total Protein Albumin Urine Color Yellow Urine Appearance Clear Urine pH 7.0 Ur Specific [place] 1.004 L Urine Protein Negative Urine Glucose (UA) Negative Urine Ketones Negative Urine Blood Negative Urine Nitrite Negative Urine Bilirubin Negative Urine Urobilinogen 0.2 Ur Leukocyte Esterase Negative RPR Titer 06/21/19 05:10 WBC RBC Hgb Hct MCV MCH MCHC RDW Plt Count MPV Absolute Neuts (auto) Neutrophils % Neutrophils % (Manual) Band Neutrophils % Lymphocytes % Lymphocytes % (Manual) Monocytes % Monocytes % (Manual) Eosinophils % Eosinophils % (Manual) Basophils % Basophils % (Manual) Myelocytes % (Man) Promyelocytes % (Man) Blast Cells % (Manual) Nucleated RBC % Metamyelocytes Hypochromia Platelet Estimate Polychromasia Poikilocytosis Anisocytosis Microcytosis Macrocytosis Sodium Potassium Chloride Carbon Dioxide Anion Gap BUN Creatinine Est GFR (CKD-EPI)AfAm Est GFR (CKD-EPI)NonAf POC Glucometer 91 Random Glucose Fasting Glucose Hemoglobin A1c % Calcium Total Bilirubin AST ALT Alkaline Phosphatase Total Protein Albumin Urine Color Urine Appearance Urine pH Ur Specific [place] Urine Protein Urine Glucose (UA) Urine Ketones Urine Blood Urine Nitrite Urine Bilirubin Urine Urobilinogen Ur Leukocyte Esterase RPR Titer today pt is aaox3 ambulating no acute distress no s/s of withdrawals - Treatment Hospital Course: Detox Protocol Followed, Detoxed Safely, Responded well, Discharged Condition Good, Rehab Referral Accepted Patient has Accepted a Rehab Referral to: pt referred to [facility] inpatient rehab - Medication Discharge Medications: Ambulatory Orders Furosemide 40 mg PO DAILY 06/16/19 Gabapentin [Neurontin] 300 mg PO TID 06/16/19 Hydralazine HCl 25 mg PO TID 06/16/19 Losartan Potassium 100 mg PO DAILY 06/16/19 - Diagnosis (1) Alcohol dependence with uncomplicated withdrawal Current Visit: Yes Status: Chronic (2) Cocaine dependence Current Visit: Yes Status: Chronic Qualifiers: Substance use status: uncomplicated Qualified Code(s): F14.20 - Cocaine dependence, uncomplicated (3) Sedative, hypnotic or anxiolytic dependence with withdrawal, uncomplicated Current Visit: Yes Status: Chronic (4) Substance induced mood disorder Current Visit: Yes Status: Acute (5) Substance-induced sleep disorder Current Visit: Yes Status: Acute (6) Asthma Current Visit: Yes Status: Chronic Qualifiers: Asthma severity: moderate Asthma persistence: unspecified Asthma complication type: uncomplicated Qualified Code(s): J45.909 - Unspecified asthma, uncomplicated (7) Dyslipidemia Current Visit: Yes Status: Chronic (8) Essential (primary) hypertension Current Visit: Yes Status: Chronic (9) Nicotine dependence Current Visit: Yes Status: Chronic Qualifiers: Nicotine product type: cigarettes Substance use status: uncomplicated Qualified Code(s): F17.210 - Nicotine dependence, cigarettes, uncomplicated (10) Obesity, Class III, BMI 40-49.9 (morbid obesity) Current Visit: Yes Status: Chronic (11) PTSD (post-traumatic stress disorder) Current Visit: Yes Status: Chronic (12) PVD (peripheral vascular disease) Current Visit: Yes Status: Chronic (13) Brain aneurysm Current Visit: No Status: Resolved - AMA Did Patient Leave Against Medical Advice: No
[2019-06-21 09:43] VITALS: BP 131/67; PULSE 83; TEMP 98.2
[2019-06-21] MEDS: PRENATAL VITAMINS W/ FOLIC ACID TABLET (FP) PO SCH (10:19)
[2019-06-21] MEDS: AZITHROMYCIN 250 MG TABLET PO SCH (10:20)
[2019-06-21] MEDS: LOSARTAN POTASSIUM 50 MG TABLET (FP) PO SCH (10:20)
[2019-06-21] MEDS: FUROSEMIDE 40 MG TABLET (FP) PO SCH (10:20)
[2019-06-21] MEDS: NICOTINE 14 MG/24 HOURS TOPICAL PATCH TD SCH (10:21)
[2019-06-21] MEDS: ALBUTEROL SO4 8 GM HFA INHALER IH PRN (10:26)
== END 2019-06-21 11:42 | disposition home or self-care (01) | DRG 897 ==
LOC: YASAS 14:53 → Y6N 22:33
PROVIDERS: ADMIT Surgery; ATTEND Surgery
PROC: HZ2ZZZZ Detoxification Services for Substance Abuse Treatment (ICD-10-PCS; principal; 2019-06-16)
DX: F10.230 Alcohol dependence with withdrawal, uncomplicated (principal); F11.20 Opioid dependence, uncomplicated; F14.20 Cocaine dependence, uncomplicated; F19.282 Other psychoactive substance dependence with psychoactive substance-induced sleep disorder; Z68.42 Body mass index [BMI] 45.0-49.9, adult; F13.230 Sedative, hypnotic or anxiolytic dependence with withdrawal, uncomplicated; F17.210 Nicotine dependence, cigarettes, uncomplicated; F43.10 Post-traumatic stress disorder, unspecified; F19.24 Other psychoactive substance dependence with psychoactive substance-induced mood disorder; I10 Essential (primary) hypertension; E78.5 Hyperlipidemia, unspecified; I73.9 Peripheral vascular disease, unspecified; G47.30 Sleep apnea, unspecified; J45.909 Unspecified asthma, uncomplicated; J02.9 Acute pharyngitis, unspecified; D72.829 Elevated white blood cell count, unspecified; B18.2 Chronic viral hepatitis C; R73.9 Hyperglycemia, unspecified; E66.01 Morbid (severe) obesity due to excess calories; Z59.0 Homelessness
CPT/HCPCS: 36415; 80053; 81003; 82947; 82962; 83036; 85025; 85027; 86593; 93005; 93010